=== PATIENT | female | born 1995 | race Caucasian/White ===

== ENCOUNTER 2021-03-26 07:05 | Inpatient (IN) | payer OTHER ==
[2021-03-26 08:21] VITALS: BMI 26.6
[2021-03-26] MEDS ORDERED: BUTORPHANOL TARTRATE 1 MG/ML VIAL IVPUSH PRN (08:54)
[2021-03-26] MEDS ORDERED: PROMETHAZINE HCL 25 MG/1 ML VIAL IVPUSH ONE (08:54)
[2021-03-26] MEDS ORDERED: DINOPROSTONE 10 MG VAGINAL SUPPOSITORY VG ONE (09:00)
[2021-03-26 09:30] LABS: BASO % 0.5 % (0-2.0); EOS % 0.4 % (0-4.5); HEMATOCRIT 35.8 % (32.4-45.2); HEMOGLOBIN 12.7 GM/dL (10.7-15.3); LYMPH % 21.6 % (8-40); MCHC 35.4 g/dl (32.0-36.0); MEAN PLT VOLUME 7.8 fl (7.5-11.1); NEUT % 69.5 % (42.8-82.8); PLATELET COUNT 280 10^3/uL (134-434); RBC 4.37 M/mm3 (3.60-5.2)
[2021-03-26 09:34] LABS: INR 0.94 (0.83-1.09); PROTHROMBIN TIME (PATIENT) 11.4 SEC (9.7-13.0)
[2021-03-26 09:37] LABS: ACTIVATED PTT 27.6 SECONDS (25.2-36.5)
[2021-03-26 09:47] LABS: CALCIUM 8.4 mg/dL (8.5-10.1)
[2021-03-26 09:51] LABS: CREATININE 0.6 mg/dL (0.55-1.3)
[2021-03-26] MEDS: DEXTROSE 5%-LACTATED RINGERS 1,000 ML IV SCH ×2 (10:11→15:18)
[2021-03-26 10:58] LABS: HIV INTERPRETATION NEGATIVE (NEGATIVE)
[2021-03-26] MEDS ORDERED: BUTORPHANOL TARTRATE 2 MG/ML VIAL ONE (15:44)
[2021-03-26] MEDS ORDERED: PROMETHAZINE HCL 25 MG/1 ML VIAL ONE (15:44)
[2021-03-26] MEDS ORDERED: OXYTOCIN 30 UNITS in 0.9% NS 30 UNIT/500 ML INFUS.BAG IVPB SCH (21:15)
[2021-03-26] MEDS ORDERED: FENTANYL/BUPIVACAINE/NS/PF - PCEA - 50 ML DISP.SYRIN EP ONE (22:12)
[2021-03-26] MEDS ORDERED: BUPIVACAINE HCL/PF 0.25% (2.5MG/ML) 10 ML VIAL ONE (22:18)
[2021-03-26] MEDS ORDERED: NALOXONE HCL 0.4 MG/ML VIAL IVPUSH PRN (22:22)
[2021-03-26] MEDS ORDERED: FENTANYL/BUPIVACAINE/NS/PF - PCEA - 50 ML DISP.SYRIN EP SCH (22:30)
[2021-03-26] MEDS ORDERED: OXYTOCIN 30 UNITS in 0.9% NS 30 UNIT/500 ML INFUS.BAG IVPB ONE (23:58)
[2021-03-27] MEDS ORDERED: OXYTOCIN 20 UNITS in 0.9% NS 20 UNIT/1,000 ML INFUS.BAG IV ONE (02:03)
[2021-03-27] MEDS ORDERED: LIDOCAINE HCL 1% PRESERVATIVE FREE - 30ML VIAL ONE (02:03)
[2021-03-27] MEDS ORDERED: BISACODYL 10 MG SUPP.RECT RC PRN (02:35)
[2021-03-27] MEDS ORDERED: WITCH HAZEL 50% (TUCKS) 40 PAD/JAR PAD TP PRN (02:35)
[2021-03-27] MEDS ORDERED: BENZOCAINE 28 GM HEMORRHOIDAL OINTMENT TP PRN (02:35)
[2021-03-27] MEDS ORDERED: BENZOCAINE 20% 57 GM BOTTLE TP PRN (02:35)
[2021-03-27] MEDS ORDERED: METHYLERGONOVINE MALEATE 0.2 MG/1 ML AMP IM PRN (02:35)
[2021-03-27] MEDS ORDERED: ACETAMINOPHEN 325 MG TABLET (FP) PO PRN (02:35)
[2021-03-27] MEDS ORDERED: OXYTOCIN 20 UNITS in 0.9% NS 20 UNIT/1,000 ML INFUS.BAG IV SCH (02:45)
[2021-03-27 03:24] LABS: CORD BASE EXCESS -5.3 mmol/L (0-2); CORD HCO3 20.8 mmHg (20-29); CORD PCO2 42.7 mmHg (30-78); CORD pH 7.306 (7.14-7.44)
[2021-03-27 03:25] LABS: CORD BASE EXCESS -7.4 mmol/L (0-2); CORD HCO3 21.8 mmHg (20-29); CORD PCO2 59.2 mmHg (30-78); CORD pH 7.183 (7.14-7.44)
[2021-03-27] MEDS ORDERED: DIPHTH,PERTUSS(ACELL),TET 0.5 ML DISP.SYRIN IM ONE (10:00)
[2021-03-27] MEDS: PRENATAL VITAMINS W/ FOLIC ACID TABLET (FP) PO SCH (10:35)
[2021-03-27] MEDS: FERROUS SO4 325 MG TABLET (FP) PO SCH ×2 (10:35→17:45)
[2021-03-27] MEDS: IBUPROFEN 600 MG TABLET (FP) PO PRN ×3 (10:36→21:38)
[2021-03-28] MEDS: FERROUS SO4 325 MG TABLET (FP) PO SCH ×2 (10:52→18:26)
[2021-03-28] MEDS: PRENATAL VITAMINS W/ FOLIC ACID TABLET (FP) PO SCH (10:52)
[2021-03-28 11:47] LABS: BASO % 0.6 % (0-2.0); EOS % 0.8 % (0-4.5); HEMOGLOBIN 12.3 GM/dL (10.7-15.3); LYMPH % 13.3 % (8-40); MEAN CELL VOLUME 82.9 fl (80-96); MEAN PLT VOLUME 7.9 fl (7.5-11.1); MONO % 5.9 % (3.8-10.2); NEUT % 79.4 % (42.8-82.8); PLATELET COUNT 250 10^3/uL (134-434); RBC 4.22 M/mm3 (3.60-5.2); RDW 14.1 % (11.6-15.6); WHITE BLOOD COUNT 9.9 K/mm3 (4.0-10.0)
[2021-03-28] MEDS: IBUPROFEN 600 MG TABLET (FP) PO PRN (21:43)
[2021-03-28] MEDS ORDERED: SENNOSIDES/DOCUSATE COMBO (SENNA PLUS) TABLET (UD) PO PRN (22:00)
[2021-03-29] MEDS: PRENATAL VITAMINS W/ FOLIC ACID TABLET (FP) PO SCH (13:16)
[2021-03-29] MEDS: FERROUS SO4 325 MG TABLET (FP) PO SCH (13:17)
[2021-03-29 16:50] VITALS: BP 110/62; PULSE 62; TEMP 98.2
== END 2021-03-29 15:00 | disposition home or self-care (01) | DRG 560 ==
LOC: JLDR 07:05 → J3W 03-27 05:58
PROVIDERS: ADMIT Obstetrics & Gynecology; ATTEND Obstetrics & Gynecology
PROC: 3E0P7VZ Introduction of Hormone into Female Reproductive, Via Natural or Artificial Opening (ICD-10-PCS; principal; 2021-03-26)
PROC: 10E0XZZ Delivery of Products of Conception, External Approach (ICD-10-PCS; 2021-03-27)
PROC: 0HQ9XZZ Repair Perineum Skin, External Approach (ICD-10-PCS; 2021-03-27)
DX: O36.0130 Maternal care for anti-D [Rh] antibodies, third trimester, not applicable or unspecified (principal); O70.0 First degree perineal laceration during delivery; Z3A.38 38 weeks gestation of pregnancy; Z37.0 Single live birth
CPT/HCPCS: 36415; 36600; 59409; 80048; 82803; 85025; 85461; 85610; 85730; 86780; 86850; 86870; 86900; 86901; 86902; 86999; 87389; C9803; U0003; U0005

== ENCOUNTER 2024-04-22 20:27 | Emergency (ER) | payer OTHER ==
[2024-04-22 20:35] VITALS: BP 152/92; PULSE 82; RESP 18; TEMP 98.4; BMI 30.6
[2024-04-22] MEDS ORDERED: ACETAMINOPHEN INJECTION 100 ML ONE (21:04)
[2024-04-22] MEDS: ACETAMINOPHEN 1000 MG/100 ML BAG IVPB ONE (21:08)
[2024-04-22] MEDS ORDERED: LIDOCAINE 4% PATCH TP ONE (21:13)
[2024-04-22] MEDS: LIDOCAINE 5% TOPICAL PATCH TP ONE (21:19)
[2024-04-22 21:25] LABS: BASO % 0.5 % (0-2.0); EOS % 1.4 % (0-4.5); HEMATOCRIT 42.1 % (32.4-45.2); HEMOGLOBIN 14.3 GM/dL (10.7-15.3); LYMPH % 32.4 % (8-40); MCH 28.2 pg (25.7-33.7); MCHC 33.9 g/dl (32.0-36.0); MEAN CELL VOLUME 83.2 fl (80-96); MEAN PLT VOLUME 7.4 fl (7.5-11.1); NEUT % 55.7 % (42.8-82.8); PLATELET COUNT 307 10^3/uL (134-434); RBC 5.07 M/mm3 (3.60-5.2); RDW 13.9 % (11.6-15.6); WHITE BLOOD COUNT 8.2 K/mm3 (4.0-10.0)
[2024-04-22 21:27] LABS: INR 0.96 (0.83-1.09); PROTHROMBIN TIME (PATIENT) 11.1 SEC (9.7-13.0)
[2024-04-22 21:29] LABS: ACTIVATED PTT 33.3 SECONDS (25.2-36.5)
[2024-04-22 21:37] LABS: POTASSIUM 3.6 mmol/L (3.5-5.1)
[2024-04-22 21:39] LABS: CALCIUM 9.6 mg/dL (8.5-10.1)
[2024-04-22 21:40] LABS: ALBUMIN 4.1 g/dl (3.4-5.0); BLOOD UREA NITROGEN 9.1 mg/dL (7-18)
[2024-04-22 21:43] LABS: CREATININE 0.7 mg/dL (0.55-1.3)
[2024-04-22 21:44] LABS: BILIRUBIN,TOTAL 0.5 mg/dL (0.2-1)
[2024-04-22 21:45] LABS: TOT PROT 7.1 g/dl (6.4-8.2)
[2024-04-22] MEDS ORDERED: LIDOCAINE PATCH REMOVAL MC SCH (22:00)
[2024-04-22] MEDS ORDERED: predniSONE 20 MG TABLET (UD) ONE (22:52)
[2024-04-22] MEDS: predniSONE 20 MG TABLET (UD) PO ONE (22:56)
[2024-04-22 23:11] LABS: EPI CELLS 8 /uL (0-25.1); HYALINE CASTS 0 /uL (0-3.1); URINE APPEARANCE CLEAR; URINE BACTERIA 88 /uL (0-1359); URINE BILIRUBIN NEGATIVE (NEGATIVE); URINE COLOR YELLOW; URINE GLUCOSE (UA) NEGATIVE (NEGATIVE); URINE KETONE NEGATIVE (NEGATIVE); URINE LEUK ESTERASE NEGATIVE (NEGATIVE); URINE NITRITE NEGATIVE (NEGATIVE); URINE PROTEIN NEGATIVE (NEGATIVE); URINE RBC 58 /uL (0-23.9); URINE UROBILINOGEN 0.2 mg/dL (0.2-1.0); URINE WBC 4 /uL (0-25.8)
[2024-04-23] MEDS ORDERED: valACYclovir HCL 500 MG TABLET (FP) ONE (00:01)
[2024-04-23] MEDS: valACYclovir HCL 500 MG TABLET (FP) PO ONE (00:05)
== END 2024-04-23 00:21 | disposition home or self-care (01) ==
LOC: JER 20:27
PROC: 3E033NZ Introduction of Analgesics, Hypnotics, Sedatives into Peripheral Vein, Percutaneous Approach (ICD-10-PCS; principal; 2024-04-22)
DX: R51.9 Headache, unspecified (principal); M54.9 Dorsalgia, unspecified; R30.0 Dysuria; G51.0 Bell's palsy; R20.0 Anesthesia of skin
CPT/HCPCS: 36415; 71045-TC-FY; 80053; 81003; 82962; 84703; 85025; 85610; 85730; 87086; 93005; 93010; 99285-25; J0131

== ENCOUNTER 2024-07-06 01:43 | Emergency (ER) | payer OTHER ==
[2024-07-06 01:51] VITALS: BP 130/83; PULSE 73; RESP 20; TEMP 99.1; BMI 28.6
[2024-07-06] MEDS ORDERED: ACETAMINOPHEN 500 MG TABLET (FP) PO ONE (03:29)
[2024-07-06] MEDS ORDERED: ACETAMINOPHEN 325 MG TABLET (FP) ONE (05:07)
== END 2024-07-06 05:47 | disposition home or self-care (01) ==
LOC: JER 01:43
DX: H57.12 Ocular pain, left eye (principal); H53.8 Other visual disturbances
CPT/HCPCS: 70450-TC; 99284-25